=== PATIENT | male | born 1985 | race African-American/Black ===

== ENCOUNTER 2020-05-11 22:58 | Emergency (ER) | payer SELFPAY ==
[~2020-05-11] VITALS: Ht 177.8 cm; Wt 94.1 kg
[2020-05-11] MEDS ORDERED: OXYC-601 PO (23:29)
[2020-05-11] MEDS ORDERED: LORA-999 PO (23:29)
[2020-05-11] MEDS ORDERED: MIRT-89 PO (23:29)
[2020-05-12 02:18] VITALS: BP 139/91
== END 2020-05-12 02:50 | disposition home or self-care (01) ==
LOC: EMS 23:00
DX: F41.9 Anxiety disorder, unspecified (principal); F32.9 Major depressive disorder, single episode, unspecified; I10 Essential (primary) hypertension; F17.210 Nicotine dependence, cigarettes, uncomplicated; F12.90 Cannabis use, unspecified, uncomplicated